=== PATIENT | male | born 1960 | race Caucasian/White ===

== ENCOUNTER → 2018-05-04 07:42 | Outpatient (CLI) | payer OTHER, SELFPAY ==
[2018-05-04 09:34] LABS: Add Manual Diff / Slide Review NO; Basophils Absolute Auto 0 /uL (0-100); Basophils Percent Auto 0.8 % (0-2); Eosinophils Absolute Auto 100 /uL (0-450); Eosinophils Percent Auto 1.6 % (2-4); Hemoglobin 16.3 g/dL (13.5-17.5); Lymphocytes Absolute Auto 1600 /uL (1100-4500); Lymphocytes Percent Auto 40.1 % (25-40); Mean Corpuscular HGB Conc 34.6 % (30-36); Mean Corpuscular Hemoglobin 32.2 PG (26-34); Monocytes Absolute Auto 300 /uL (0-900); Monocytes Percent Auto 8.5 % (3-14); Neutrophils Absolute Auto 2000 /uL (1500-7000); Platelet Count 201 X10^3/uL (150-400); Red Blood Cell Count 5.06 X10^6/uL (4.5-5.9); Red Cell Distribution Width 13.3 % (11.6-14.8)
[2018-05-04 09:45] LABS: Alanine Aminotransferase 29 IU/L (21-72); Albumin 4.6 g/dL (3.5-5.0); Albumin Globulin Ratio 1.5 (1.0-2.8); Alkaline Phosphatase 65 U/L (38-126); Aspartate Aminotransferase 31 IU/L (17-59); BUN Creatinine Ratio 22.2 (6-22); Bilirubin Total 2.2 mg/dL (0.2-1.3); Blood Urea Nitrogen 20 mg/dL (9-20); Calcium 9.4 mg/dL (8.4-10.2); Carbon Dioxide 29 mmol/L (22-32); Chloride 101 mmol/L (98-107); Cholesterol 223 mg/dL (140-199); Estimated Glomerular Filt Rate > 60.0 mL/min (>60); Glucose 98 mg/dL (70-100); HDL Cholesterol 69 mg/dL (40-60); HEMOLYSIS < 15 (0-50); LDL Cholesterol Calculated 141 mg/dL (<100); Potassium 3.8 mmol/L (3.4-5.1); Sodium 139 mmol/L (137-145); Total Protein 7.6 g/dL (6.3-8.2); Triglycerides 65 mg/dL (35-150)
[2018-05-04 09:50] LABS: Thyroid Stimulating Hormone 1.93 uIU/mL (0.47-4.68)
== END ==
PROVIDERS: PCP Family Medicine; Visit Provider Family Medicine
DX: R17 Unspecified jaundice (principal); E78.5 Hyperlipidemia, unspecified; R89.9 Unspecified abnormal finding in specimens from other organs, systems and tissues; Z12.5 Encounter for screening for malignant neoplasm of prostate; Z13.0 Encounter for screening for diseases of the blood and blood-forming organs and certain disorders involving the immune mechanism; Z13.29 Encounter for screening for other suspected endocrine disorder
CPT/HCPCS: 36415; 80053; 80061; 84153; 84443; 85025

== ENCOUNTER → 2019-11-10 14:02 | Outpatient (CLI) | payer OTHER, SELFPAY ==
--- NOTE | 2019-11-10 14:06 | DI.RAD.S_ITS ---
PROCEDURE: XR CHEST 2V INDICATIONS: Chest pain, chronic cough, swollowing problems r/o lesion TECHNIQUE: 2 views of the chest were acquired. COMPARISON: None. FINDINGS: Surgical changes and devices: None. Lungs and pleura: Lungs are clear. No pleural effusions or pneumothorax. Mediastinum: Mediastinal contours are normal. Heart size is normal. Bones and chest wall: No suspicious bony abnormalities. Soft tissues appear unremarkable. IMPRESSION: No acute cardiopulmonary process demonstrated radiographically. Dictated by: Dario Ramirez M.D. on 11/10/2019 at 14:55 Approved by: Dario Ramirez M.D. on 11/10/2019 at 14:56
== END ==
PROVIDERS: PCP Family Medicine; Referring Provider Specialist; Visit Provider Specialist
DX: R05 Cough (principal); R07.9 Chest pain, unspecified; R13.10 Dysphagia, unspecified
CPT/HCPCS: 71046

== ENCOUNTER 2019-11-18 10:46 | Day surgery (SDC) | payer OTHER, SELFPAY ==
[2019-11-18] VITALS (8 sets, daily range): BP systolic 94–136; BP diastolic 57–74; PULSE 60–84; RESP 10–18; TEMP 36.2–37; O2SAT 97–100; BMI 20.4
--- NOTE | 2019-11-18 | PATH_ITS ---
[facility] Accession Number: [id number] . 01 Material submitted: . esophagus, E-G Junction - GE JUNCTION . 02 Diagnosis: Gastroesophageal Junction, Biopsy: Squamous and columnar mucosa with no diagnostic abnormality. Negative for intestinal metaplasia by alcian blue stain. Negative for dysplasia and malignancy. [facility] 11/23/2019 1639 Local . 02 Electronically signed: . Merced Villarreal MD, Pathologist NPI- [id number] . 01 Gross description: . GE JUNCTION: Received in formalin are 5 fragment(s) of westfall, soft tissue measuring 0.5 x 0.4 x 0.1 cm to 0.2 x 0.1 x 0.1 cm submitted entirely in 1 cassette(s) /QBJ 11/19/2019 0331 Local . 02 Microscopic: . An Alcian blue stain was performed to evaluate for intestinal metaplasia and is negative. The control stain showed appropriate reactivity. . 02 Pathologist provided ICD-10: R10.13 . 02 CPT . 379639, [id number] Performed at: 01 [facility] [address], [place], [place] [id number] MD Neo Carr MD Phone: [phone] Performed at: 02 [facility] [address] [place], [place] [id number] MD Merced Villarreal MD Phone: [phone]
[2019-11-18] MEDS: LACTATED RINGERS 1,000 ML 200 ML IV ×2 (11:30→12:12)
--- NOTE | 2019-11-18 11:30 | PM.PREOP ---
Pre-operative Note COVID-19 COVID-19 status: Negative Result date/Date tested (Pos, Neg/Pending): 11/15/19 Interval Note History & Physical reviewed/Exam performed by Physician: Yes Changes to H&P: No ASA Class (for procedural sedation): I
--- NOTE | 2019-11-18 11:40 | SUR.OPER ---
Pt with HR 44-54. BP 74/46. Pt dizzy and diaphoretic. 100% on 2LNC. Given 0.4mg IV Atropine at 11:41 by ADALID Anthony. IVF Infusing. Post admin BP 80/51.
[2019-11-18] MEDS: ATROPINE 1 MG/10 ML SYRINGE IV (11:56)
--- NOTE | 2019-11-18 11:56 | P.OP.ENDO_ITS ---
Operative Date/Time/Diagnoses Date of procedure: 11/18/19 Time of procedure: 11:56 Pre-op diagnosis: Dysphagia Post-op diagnosis: same (Cause unclear. Possible Bai's esophagus.) Procedure & Clinicians Study performed: EGD with cold biopsy Same procedure as scheduled: Yes Indications: Dysphagia Surgeon: Eduardo Pinzon Procedure Notes SCOAP/Timeout: Performed Procedure in detail: The patient had topical anesthetic applied to oropharynx. He was noted to have a slow heart rate and his blood pressure was markedly reduced prior to any sedation. He was given a dose of atropine. That brought his pulse up from the 40s and low 50s into the 60-70 range. His blood pressure improved from 70s systolic to 90 systolic. He was alert throughout this. But did feel a little dizzy initially. He states that this happens to him periodically at home. After giving him a bolus of LR and the atropine, He was placed in left lateral decubitus position and underwent cautious IV sedation directed by the surgeon consisting of fentanyl and Versed. Frequent vitals were taken and they pretty much were unchanged throughout the procedure. A bite block was inserted and the scope was advanced through it into the esophagus. Th e esophagus was unremarkable. GE junction was noted at 45 cm from the incisors. The stomach insufflated well. There were no lesions seen in the body, antrum or at the incisura. The pyloric channel was widely patent. The duodenum was unremarkable to the 4th part. The scope was brought back into the stomach and retroflexed. The proximal stomach normal in appearance. There was no evidence of a hiatal hernia.. The scope was straightened and brought out through the esophagus again. The possibility of Bai's esophagus was entertained due to the appearance of the GE junction. I did some random biopsies in this region. No other lesions were seen. There was no evidence of any narrowing in the pharynx is or esophagus. The scope was removed and the patient tolerated the procedure well. Scope withdrawal time: Not applicable Sedation minutes: 10 Findings: Bai's esophagus (Possible) Specimen(s): other (GE junction) Complications: none Post-procedure Follow up: as needed Disposition: PACU
[2019-11-18] MEDS: MIDAZOLAM 5 MG/5 ML VIAL IV (11:57)
[2019-11-18] MEDS: fentaNYL 250 MCG/5 ML INJ IV (11:58)
== END 2019-11-18 12:52 | disposition home or self-care (01) ==
PROVIDERS: PCP Family Medicine; Referring Provider Family Medicine; Visit Provider Specialist
PROC: 0DJ08ZZ Inspection of Upper Intestinal Tract, Via Natural or Artificial Opening Endoscopic (ICD-10-PCS; CPT 43235; principal; 2019-11-18 11:45)
DX: R13.10 Dysphagia, unspecified (principal)
CPT/HCPCS: 43239; 99152; J0461; J2250; J3010

== ENCOUNTER → 2019-12-02 08:20 | Outpatient (CLI) | payer OTHER, SELFPAY ==
[2019-12-02 08:38] LABS: Add Manual Diff / Slide Review NO; Basophils Absolute Auto 0 /uL (0-100); Basophils Percent Auto 0.2 % (0-2); Eosinophils Absolute Auto 100 /uL (0-450); Eosinophils Percent Auto 2.9 % (2-4); Hematocrit 44.7 % (41-53); Hemoglobin 15.6 g/dL (13.5-17.5); Lymphocytes Absolute Auto 1900 /uL (1100-4500); Lymphocytes Percent Auto 47.7 % (25-40); Mean Corpuscular Hemoglobin 32.2 PG (26-34); Mean Corpuscular Volume 92.1 fL (80-100); Monocytes Absolute Auto 300 /uL (0-900); Neutrophils Absolute Auto 1700 /uL (1500-7000); Neutrophils Percent Auto 42.2 % (50-75); Platelet Count 168 X10^3/uL (150-400); Red Blood Cell Count 4.85 X10^6/uL (4.5-5.9); Red Cell Distribution Width 13.4 % (11.6-14.8); White Blood Cell Count 4.1 X10^3/uL (4.5-11.0)
[2019-12-02 08:47] LABS: HEMOLYSIS < 15 (0-50)
[2019-12-02 08:54] LABS: Alanine Aminotransferase 20 IU/L (<50); Albumin 4.5 g/dL (3.5-5.0); Albumin Globulin Ratio 1.7 (1.0-2.8); Alkaline Phosphatase 80 U/L (38-126); Aspartate Aminotransferase 28 IU/L (17-59); BUN Creatinine Ratio 19.8 (6-22); Bilirubin Total 2.9 mg/dL (0.2-1.3); Blood Urea Nitrogen 19 mg/dL (9-20); Calcium 9.4 mg/dL (8.4-10.2); Carbon Dioxide 29 mmol/L (22-32); Chloride 105 mmol/L (98-107); Cholesterol 183 mg/dL (140-199); Estimated Glomerular Filt Rate > 60.0 mL/min (>60); Globulin 2.7 g/dL (1.7-4.1); Glucose 99 mg/dL (70-100); HDL Cholesterol 73 mg/dL (40-60); LDL Cholesterol Calculated 100 mg/dL (<100); Potassium 4.2 mmol/L (3.4-5.1); Sodium 139 mmol/L (137-145); Total Protein 7.2 g/dL (6.3-8.2); Triglycerides 52 mg/dL (35-150)
[2019-12-02 09:21] LABS: Prostate Specific Antigen Scrn 0.942 ng/mL (0.1-4.0)
== END ==
PROVIDERS: PCP Family Medicine; Referring Provider Family Medicine; Visit Provider Family Medicine
DX: R07.9 Chest pain, unspecified (principal)
CPT/HCPCS: 36415; 80053; 80061; 85025; G0103

== ENCOUNTER → 2020-01-10 12:42 | Outpatient (CLI) | payer OTHER, SELFPAY ==
[2020-01-10 13:26] LABS: Erythrocyte Sedimentation Rate 1 MM/HR (0-15)
[2020-01-10 13:27] LABS: Bilirubin Direct 0.2 mg/dL (0.0-0.4); Bilirubin Total 2.8 mg/dL (0.2-1.3)
[2020-01-10 13:56] LABS: Thyroid Stimulating Hormone 1.26 uIU/mL (0.47-4.68)
== END ==
PROVIDERS: PCP Family Medicine; Referring Provider Family Medicine; Visit Provider Family Medicine
DX: R17 Unspecified jaundice (principal)
CPT/HCPCS: 36415; 82247; 82248; 84443; 85651

== ENCOUNTER → 2020-01-17 12:36 | Outpatient (CLI) | payer OTHER, SELFPAY ==
--- NOTE | 2020-01-17 12:36 | DI.US.S_ITS ---
PROCEDURE: US ABDOMEN COMPLETE INDICATIONS: INCREASED BILIRUBIN. JAUNDICE TECHNIQUE: Real-time scanning was performed of the abdominal and retroperitoneal organs, with image documentation. COMPARISON: None. FINDINGS: Liver: Liver is normal in size and demonstrates mildly increased echotexture. Gallbladder: No gallstones. No gallbladder wall thickening, pericholecystic fluid or sonographic Mcgraw's sign. Biliary ducts: Intrahepatic bile ducts are non-dilated. Extrahepatic bile duct caliber measures 4.3 mm. Normal is 6-7 mm or less in diameter, or 10 mm or less post-cholecystectomy. Pancreas: Visualized portions of the pancreas are sonographically normal. Spleen: Spleen is normal in size and homogeneous in echotexture. Kidneys: Kidneys are normal in size and echotexture. Right kidney measures 10.3 cm long; left kidney measures 9.8 cm long. No hydronephrosis or nephrolithiasis. No solid masses. Aorta: Visualized aorta is normal in caliber at less than 3 cm. Iliacs: Proximal common iliac arteries are normal in caliber at less than 2.5 cm. IVC: Intrahepatic inferior vena cava is patent. Miscellaneous: No free abdominal fluid. Hypoechoic tubular structure seen in the left lower quadrant, presumably bowel loops although no peristalsis was visualized at the time of scanning. IMPRESSION: 1. Mildly increased hepatic echotexture, which is nonspecific. This finding is most likely secondary to hepatic fatty infiltration although other hepatocellular disease may have a similar appearance. Recommend clinical correlation. 2. Hypoechoic tubular structure seen in the left lower quadrant, presumably bowel loops although no peristalsis was visualized at the time of scanning. If clinically indicated, CT may be obtained for further evaluation. Dictated by: Katie Wiseman M.D. on 01/17/2020 at 15:21 Approved by: Katie Wiseman M.D. on 01/17/2020 at 15:25
== END ==
PROVIDERS: PCP Family Medicine; Referring Provider Family Medicine; Visit Provider Family Medicine
DX: R17 Unspecified jaundice (principal)
CPT/HCPCS: 76700

== ENCOUNTER → 2020-09-27 09:35 | Outpatient (CLI) | payer OTHER, SELFPAY ==
[2020-09-27 10:36] LABS: Add Manual Diff / Slide Review NO; Basophils Absolute Auto 0 /uL (0-100); Basophils Percent Auto 0.1 % (0-2); Eosinophils Absolute Auto 100 /uL (0-450); Eosinophils Percent Auto 1.9 % (2-4); Hematocrit 44.2 % (41-53); Hemoglobin 15.2 g/dL (13.5-17.5); Lymphocytes Absolute Auto 1500 /uL (1100-4500); Lymphocytes Percent Auto 36.2 % (25-40); Mean Corpuscular HGB Conc 34.4 % (30-36); Mean Corpuscular Hemoglobin 32.2 PG (26-34); Mean Corpuscular Volume 93.7 fL (80-100); Monocytes Absolute Auto 300 /uL (0-900); Monocytes Percent Auto 7.5 % (3-14); Neutrophils Absolute Auto 2200 /uL (1500-7000); Neutrophils Percent Auto 54.3 % (50-75); Platelet Count 186 X10^3/uL (150-400); Red Blood Cell Count 4.72 X10^6/uL (4.5-5.9); White Blood Cell Count 4.1 X10^3/uL (4.5-11.0)
[2020-09-27 10:47] LABS: Alanine Aminotransferase 21 IU/L (<50); Albumin 4.3 g/dL (3.5-5.0); Albumin Globulin Ratio 1.5 (1.0-2.8); Alkaline Phosphatase 71 U/L (38-126); Aspartate Aminotransferase 32 IU/L (17-59); BUN Creatinine Ratio 25.6 (6-22); Bilirubin Total 3.1 mg/dL (0.2-1.3); Blood Urea Nitrogen 23 mg/dL (9-20); Calcium 9.2 mg/dL (8.4-10.2); Carbon Dioxide 29 mmol/L (22-32); Chloride 104 mmol/L (98-107); Cholesterol 197 mg/dL (140-199); Estimated Glomerular Filt Rate > 60.0 mL/min (>60); Globulin 2.8 g/dL (1.7-4.1); Glucose 94 mg/dL (70-100); HDL Cholesterol 65 mg/dL (40-60); HEMOLYSIS < 15 (0-50); LDL Cholesterol Calculated 117 mg/dL (<100); Potassium 4.1 mmol/L (3.4-5.1); Sodium 138 mmol/L (137-145); Total Protein 7.1 g/dL (6.3-8.2); Triglycerides 77 mg/dL (35-150)
[2020-09-27 11:16] LABS: Prostate Specific Antigen Scrn 2.15 ng/mL (0.1-4.0)
[2020-09-27 11:35] LABS: Creatinine Urine Random 195.3 mg/dL
[2020-09-27 11:40] LABS: Microalbumin Urine Random < 0.6 mg/dL (0-1.6)
[2020-09-27 11:45] LABS: TSH w/ Reflex to FT4 1.56 uIU/mL (0.47-4.68)
== END ==
PROVIDERS: PCP Family Medicine; Referring Provider Family Medicine; Visit Provider Family Medicine
DX: R17 Unspecified jaundice (principal); Z13.220 Encounter for screening for lipoid disorders; Z13.228 Encounter for screening for other metabolic disorders; Z13.29 Encounter for screening for other suspected endocrine disorder; Z76.89 Persons encountering health services in other specified circumstances; Z12.5 Encounter for screening for malignant neoplasm of prostate
CPT/HCPCS: 36415; 80053; 80061; 80076; 82043; 82570; 84443; 85025; G0103

== ENCOUNTER → 2021-07-26 14:46 | Outpatient (CLI) | payer OTHER, SELFPAY ==
[2021-07-26 17:12] LABS: Add Manual Diff / Slide Review NO; Basophils Absolute Auto 0 /uL (0-100); Basophils Percent Auto 0.1 % (0-2); Eosinophils Absolute Auto 100 /uL (0-450); Eosinophils Percent Auto 1.4 % (2-4); Hematocrit 42.8 % (41-53); Hemoglobin 14.7 g/dL (13.5-17.5); Lymphocytes Absolute Auto 1200 /uL (1100-4500); Lymphocytes Percent Auto 31.6 % (25-40); Mean Corpuscular HGB Conc 34.4 % (30-36); Mean Corpuscular Hemoglobin 32.1 PG (26-34); Mean Corpuscular Volume 93.2 fL (80-100); Monocytes Absolute Auto 300 /uL (0-900); Neutrophils Absolute Auto 2300 /uL (1500-7000); Neutrophils Percent Auto 57.9 % (50-75); Platelet Count 185 X10^3/uL (150-400); Red Blood Cell Count 4.59 X10^6/uL (4.5-5.9); Red Cell Distribution Width 13.2 % (11.6-14.8); White Blood Cell Count 3.9 X10^3/uL (4.5-11.0)
[2021-07-26 17:21] LABS: Alanine Aminotransferase 17 IU/L (<50); Albumin 4.5 g/dL (3.5-5.0); Albumin Globulin Ratio 1.7 (1.0-2.8); Alkaline Phosphatase 61 U/L (38-126); Aspartate Aminotransferase 28 IU/L (17-59); BUN Creatinine Ratio 25.3 (6-22); Bilirubin Total 2.2 mg/dL (0.2-1.3); Blood Urea Nitrogen 24 mg/dL (9-20); Calcium 8.7 mg/dL (8.4-10.2); Carbon Dioxide 29 mmol/L (22-32); Chloride 105 mmol/L (98-107); Estimated Glomerular Filt Rate > 60 mL/min (>60); Globulin 2.6 g/dL (1.7-4.1); Glucose 72 mg/dL (80-110); HEMOLYSIS < 15 (0-50); Sodium 141 mmol/L (137-145); Total Protein 7.1 g/dL (6.3-8.2)
[2021-07-26 17:51] LABS: Prostate Specific Antigen 0.986 ng/mL (0.10-4.00)
== END ==
PROVIDERS: PCP Family Medicine; Referring Provider Family Medicine; Visit Provider Family Medicine
DX: Z00.00 Encounter for general adult medical examination without abnormal findings (principal); E80.4 Gilbert syndrome
CPT/HCPCS: 36415; 80053; 84153; 85025

== ENCOUNTER → 2021-08-21 10:09 | Outpatient (CLI) | payer OTHER, SELFPAY ==
--- NOTE | 2021-08-21 10:10 | DI.US.S_ITS ---
PROCEDURE: US SOFT TISSUE HEAD AND NECK INDICATIONS: LEFT NECK LUMP TECHNIQUE: Real-time scanning was performed of the neck region of interest, with image documentation. COMPARISON: None. FINDINGS: No abnormal mass or lymph nodes identified in the area of clinical interest. No soft tissue edema or fluid collections identified in the area of clinical interest. IMPRESSION: No sonographic abnormality identified in the area of clinical interest. Dictated by: Camila Lopez MD, PhD on 08/21/2021 at 13:22 Approved by: Camila Lopez MD, PhD on 08/21/2021 at 13:26
== END ==
PROVIDERS: PCP Family Medicine; Referring Provider Family Medicine; Visit Provider Family Medicine
DX: R59.0 Localized enlarged lymph nodes (principal)
CPT/HCPCS: 76536

== ENCOUNTER → 2022-04-16 14:21 | Outpatient (CLI) | payer OTHER, SELFPAY ==
[2022-04-16 15:34] LABS: Add Manual Diff / Slide Review NO; Basophils Absolute Auto 0 /uL (0-100); Basophils Percent Auto 0.1 % (0-2); Eosinophils Absolute Auto 0 /uL (0-450); Eosinophils Percent Auto 0.5 % (2-4); Hematocrit 43.2 % (41-53); Hemoglobin 14.8 g/dL (13.5-17.5); Lymphocytes Absolute Auto 1100 /uL (1100-4500); Lymphocytes Percent Auto 21.8 % (25-40); Mean Corpuscular HGB Conc 34.3 % (30-36); Mean Corpuscular Hemoglobin 31.8 PG (26-34); Mean Corpuscular Volume 92.6 fL (80-100); Monocytes Absolute Auto 300 /uL (0-900); Monocytes Percent Auto 6.3 % (3-14); Neutrophils Absolute Auto 3600 /uL (1500-7000); Neutrophils Percent Auto 71.3 % (50-75); Platelet Count 190 X10^3/uL (150-400); Red Blood Cell Count 4.67 X10^6/uL (4.5-5.9); Red Cell Distribution Width 13.4 % (11.6-14.8)
== END ==
PROVIDERS: PCP Family Medicine; Referring Provider Nurse Practitioner Family; Visit Provider Nurse Practitioner Family
DX: R59.1 Generalized enlarged lymph nodes (principal)
CPT/HCPCS: 36415; 85025

== ENCOUNTER → 2022-05-02 | Outpatient (CLI) | payer OTHER, SELFPAY ==
--- NOTE | 2022-05-02 08:11 | DI.US.S_ITS ---
PROCEDURE: US SOFT TISSUE HEAD AND NECK INDICATIONS: enlarged lymph node right submandibular TECHNIQUE: Real-time scanning was performed of the neck region of interest, with image documentation. COMPARISON: None. FINDINGS: Two normal appearing lymph nodes with preserved fatty nvoa and no cortical thickening at the area palpable concern in the right submandibular space. IMPRESSION: Two normal appearing lymph nodes in the right submandibular space, neither enlarged or demonstrating suspicious features. Dictated by: Dario Ramirez M.D. on 05/02/2022 at 18:36 Approved by: Dario Ramirez M.D. on 05/02/2022 at 18:39
--- NOTE | 2022-06-02 08:24 | DI.ECHO.S_ITS ---
Echocardiogram Report + + :Name: ИРИНА LOYA Study Date: 05/02/2022 Height: 73 in : :Reason For Study: murmur : :Ordering Physician: GRACE, : :DAWOOD Performed By: Diana Covarrubias : :Referring: DAWOOD EDWARDS : + + Interpretation Summary Normal sinus rhythm. Normal LV size and wall thickness; normal wall motion and LV systolic function. EF is 60-65% There is mild LA enlargement; otherwise normal chamber sizes. Mitral valve leaflets demonstrate prolapse of the posterior leaflet worse than the anterior leaflet. There is mild-moderate associated central mitral regurgitation. Mild tricuspid regurgitation with estimated PA systolic pressure of 28 mm Hg assuming RA pressure of 8 mm Hg. No prior study available for comparison. Procedure: A two-dimensional transthoracic echocardiogram with color flow and Doppler was performed. The patient was in sinus rhythm with heart rates between 68-71 bpm during the exam. Left Ventricle: The left ventricle is normal in size and wall thickness. Right Ventricle: The right ventricle is normal in size and function. Atria: The left atrium is mildly dilated. Right atrial size is normal. There is no Doppler evidence for an interatrial shunt. Mitral Valve: Mild MVP. The mitral valve leaflets appear moderately thickened, but open well. There is mild to moderate mitral regurgitation. There are multiple regurgitant jets present. Aortic Valve: The aortic valve is normal in structure and function. No aortic regurgitation is present. Tricuspid Valve: The tricuspid valve is normal in structure and function. There is a trace or physiologic amount of tricuspid regurgitation. Pulmonic Valve: The pulmonic valve leaflets are thin and pliable; valve motion is normal. There is mild pulmonic regurgitation. Great Vessels: The ascending aorta is at the upper limits of normal in size. The IVC is dilated (diameter is greater than 2.1 cm) yet it collapses greater than 50% with a sniff. This suggests a right atrial pressure of 8 mm Hg. Pericardium/ Pleura There is no pericardial effusion. There is no pleural effusion. MMode/2D Measurements & Calculations LVIDd: 5.0 cm LVOT diam: 2.3 cm LVIDs: 2.8 cm Ao root diam: 3.8 cm FS: 44.6 % asc Aorta Diam: 3.6 cm EPSS: 0.26 cm IVSd: 0.84 cm LVPWd: 0.82 cm LV eduardo. diameter/BSA (cm/m^2): 2.6 LV sys. diameter/BSA (cm/m^2): 1.4 LA A2 area: 22.5 cm2 RA long axis: 5.1 cm LA A4 area: 21.1 cm2 RA area: 21.9 cm2 LA length (vol): 5.1 cm RA vol: 79.5 ml LA vol: 78.5 ml RA : 41.1 ml/m2 LA vol index: 40.5 ml/m2 TAPSE: 2.9 cm Doppler Measurements & Calculations Ao V2 max: 112.7 cm/sec LVOT Max Balta: 99.5 cm/sec Ao V2 mean: 78.3 cm/sec LV V1 max P.0 mmHg Ao max P.1 mmHg LV V1 VTI: 18.7 cm Ao mean P.8 mmHg BRAULIO(I,D): 3.4 cm2 Ao V2 VTI: 22.0 cm BRAULIO(V,D): 3.5 cm2 sev ratio: 0.85 BRAULIO indexed to BSA (cm^2/m^2): 1.8 MV E max balta: 62.9 cm/sec TR max balta: 202.8 cm/sec MV A max balta: 77.0 cm/sec TR max P.6 mmHg MV E/A: 0.82 PA V2 max: 95.5 cm/sec Med Peak E' Balta: 10.8 cm/sec PA V2 mean: 68.0 cm/sec E/E' med: 5.8 PA mean P.0 mmHg Lat Peak E' Balta: 11.7 cm/sec E/E' lat: 5.4 E/e' average: 5.6 MV dec time: 0.28 sec MVA(VTI): 2.8 cm2 MV V2 mean: 47.8 cm/sec SV(LVOT): 74.9 ml MV mean P.0 mmHg MV V2 VTI: 26.4 cm Electronically signed by: Ronda Shell M.D. on Reading Physician:05/03/2022 01:21 AM
== END ==
LOC: ECHO 08:11
PROVIDERS: PCP Family Medicine; Referring Provider Nurse Practitioner Family; Visit Provider Nurse Practitioner Family
DX: I08.1 Rheumatic disorders of both mitral and tricuspid valves (principal); R01.1 Cardiac murmur, unspecified; R59.0 Localized enlarged lymph nodes
CPT/HCPCS: 76536; 93306

== ENCOUNTER → 2023-05-15 07:51 | Outpatient (CLI) | payer OTHER, SELFPAY ==
--- NOTE | 2023-05-15 07:53 | DI.ECHO.S_ITS ---
[facility]---------+ [facility] +---------+ : : [address] : : : : [id number] : : : : Phone: [phone]+ Echocardiogram Report + + :Name: ИРИНА LOYA Study Date: 05/15/2023 Height: 72 in : :[facility] ReadingLocation: Weight: 156 lb : : Gender: Male BSA: 1.9 m2 : :: 1960 Age: 63 yrs BP: 139/79 mmHg: :Reason For Study: MITRAL INSUFFICIENCY : :Ordering Physician: CHAPIS, : :BILLIE Performed By: Diana Martínez : :Referring: BILLIE NATION : + + Interpretation Summary The ejection fraction is estimated to be 55-60%. Diastolic function could not be accurately assessed due to contradictory data. The left atrium is mildly dilated. The right ventricle is normal in size and function. The right atrium is mildly dilated. There is prolapse of the posterior mitral valve leaflet(s). There is at least moderate mitral regurgitation. There is mild tricuspid regurgitation. Pulmonary artery pressures cannot be estimated because of the lack of a measurable TR jet velocity but the IVC suggests a CVP of around 8 mmHg. Compared to the prior study dated 05/02/2022, the LVEF has decreased and the LV end diastolic diameter has increased. The severity of MR has also increased. Recommend cardiology referral. Procedure: A two-dimensional transthoracic echocardiogram with color flow and Doppler was performed. The study quality was technically good. Comparison is made with the echocardiogram of 05/02/2022. The patient was in sinus bradycardia with heart rates between 45-65 bpm during the exam. Left Ventricle: The left ventricle is normal in size and wall thickness. The ejection fraction is estimated to be 55-60%. Diastolic function could not be accurately assessed due to contradictory data. Right Ventricle: The right ventricle is normal in size and function. Atria: The left atrium is mildly dilated. The right atrium is mildly dilated. There is no Doppler evidence for an interatrial shunt. Mitral Valve: There is prolapse of the posterior mitral valve leaflet(s). There is mild mitral valve prolapse. There is moderate mitral regurgitation. There are multiple regurgitant jets present. Aortic Valve: The aortic valve is trileaflet. The aortic valve opens well. There is no aortic valve stenosis. No aortic regurgitation is present. Tricuspid Valve: The tricuspid valve leaflets are thin and pliable. There is mild tricuspid regurgitation. Pulmonary artery pressures cannot be estimated because of the lack of a measurable TR jet velocity but the IVC suggests a CVP of around 8 mmHg. Pulmonic Valve: The pulmonic valve leaflets are thin and pliable; valve motion is normal. There is mild pulmonic regurgitation. Great Vessels: The aortic root is borderline dilated. The ascending aorta could not be visualized. The IVC is dilated (diameter is greater than 2.1 cm) yet it collapses greater than 50% with a sniff. This suggests a right atrial pressure of 8 mm Hg. Pericardium/ Pleura There is no pericardial effusion. There is no pleural effusion. MMode/2D Measurements & Calculations LVIDd: 5.6 cm LVOT diam: 2.2 cm LVIDs: 3.7 cm Ao root diam: 3.7 cm FS: 34.5 % EPSS: 0.45 cm IVSd: 0.69 cm LVPWd: 0.62 cm LV eduardo. diameter/BSA (cm/m^2): 2.9 LV sys. diameter/BSA (cm/m^2): 1.9 LA A2 area: 22.7 cm2 RA long axis: 5.6 cm LA A4 area: 17.4 cm2 RA area: 22.6 cm2 LA length (vol): 4.7 cm RA vol: 77.1 ml LA vol: 71.3 ml RA : 40.2 ml/m2 LA vol index: 37.2 ml/m2 IVC diam: 2.1 cm RVD1 (basal): 3.9 cm TAPSE: 2.7 cm Doppler Measurements & Calculations Ao V2 max: 99.3 cm/sec LVOT Max Balta: 81.9 cm/sec Ao V2 mean: 76.2 cm/sec LV V1 max P.7 mmHg Ao max P.9 mmHg LV V1 VTI: 17.0 cm Ao mean P.5 mmHg BRAULIO(I,D): 3.3 cm2 Ao V2 VTI: 20.0 cm BRAULIO(V,D): 3.2 cm2 sev ratio: 0.85 BRAULIO indexed to BSA (cm^2/m^2): 1.7 MV E max balta: 76.8 cm/sec PA V2 max: 74.0 cm/sec MV A max balta: 41.8 cm/sec PA V2 mean: 50.2 cm/sec MV E/A: 1.8 PA mean P.1 mmHg Med Peak E' Balta: 9.0 cm/sec PA pr(Accel): 20.8 mmHg E/E' med: 8.5 Lat Peak E' Balta: 9.4 cm/sec E/E' lat: 8.2 E/e' average: 8.3 MV dec time: 0.17 sec SV(LVOT): 66.5 ml Reading Physician:07:54 PM
[2023-05-15 10:25] LABS: Alanine Aminotransferase 21 IU/L (<50); Albumin 4.6 g/dL (3.5-5.0); Albumin Globulin Ratio 1.6 (1.0-2.8); Alkaline Phosphatase 65 U/L (38-126); Aspartate Aminotransferase 29 IU/L (17-59); BUN Creatinine Ratio 21.4 (6-22); Bilirubin Total 3.1 mg/dL (0.2-1.3); Blood Urea Nitrogen 21 mg/dL (9-20); Calcium 9.4 mg/dL (8.4-10.2); Carbon Dioxide 28 mmol/L (22-32); Chloride 102 mmol/L (98-107); Cholesterol 223 mg/dL (140-199); Estimated Glomerular Filt Rate > 60 mL/min (>60); Globulin 2.9 g/dL (1.7-4.1); Glucose 90 mg/dL (80-110); HDL Cholesterol 78 mg/dL (40-60); HEMOLYSIS < 15 (0-50); LDL Cholesterol Calculated 135 mg/dL (<100); Sodium 140 mmol/L (137-145); Total Protein 7.5 g/dL (6.3-8.2); Triglycerides 51 mg/dL (35-150)
== END ==
LOC: ECHO 07:52
PROVIDERS: PCP Family Medicine; Referring Provider Family Medicine; Visit Provider Family Medicine
DX: Z00.00 Encounter for general adult medical examination without abnormal findings (principal); I08.1 Rheumatic disorders of both mitral and tricuspid valves; R01.1 Cardiac murmur, unspecified; R17 Unspecified jaundice; J18.9 Pneumonia, unspecified organism; E01.0 Iodine-deficiency related diffuse (endemic) goiter
CPT/HCPCS: 36415; 80053; 80061; 93306

== ENCOUNTER → 2023-09-30 12:31 | Outpatient (CLI) | payer OTHER, SELFPAY ==
--- NOTE | 2023-09-30 12:33 | DI.RAD.S_ITS ---
PROCEDURE: XR HIP W PEL IF DONE LT 2V INDICATIONS: Chronic left hip pain TECHNIQUE: AP pelvis with lateral view of the left hip. COMPARISON: None. FINDINGS: Bones: No acute fractures or dislocations. Pelvic ring appears intact. No suspicious bony lesions. Moderate to severe joint space narrowing is seen at the superior aspect of the hips bilaterally with subchondral sclerosis, subchondral cystic changes, and marginal osteophytes. Osseous prominence is seen at the femoral head/neck junctions bilaterally that could contribute to cam-type femoroacetabular impingement in the appropriate clinical setting. Mild chronic osseous irregularity at the anterior inferior left iliac spine may be related to a remote prior injury. Degenerative changes are seen in the included lumbar spine. Soft tissues: The visualized bowel gas pattern is normal. No suspicious soft tissue calcifications. IMPRESSION: Moderate to severe bilateral hip osteoarthrosis. Approved by: Jean-Claude Jones M.D. on 09/30/2023 at 14:00
--- NOTE | 2023-09-30 12:33 | DI.RAD.S_ITS ---
PROCEDURE: XR KNEE RT 3V INDICATIONS: Worsening right knee pain TECHNIQUE: 3 views of the knee were acquired. COMPARISON: None. FINDINGS: Bones: No acute fractures or dislocations. No suspicious bony lesions. Small suprapatellar enthesophyte. Mild joint space narrowing at the medial and anterior compartments with tiny marginal osteophytes. Soft tissues: Small knee effusion. No suspicious soft tissue calcifications. IMPRESSION: Mild osteoarthrosis. Small joint effusion. No acute osseous abnormality. Approved by: Jean-Claude Jones M.D. on 09/30/2023 at 14:01
--- NOTE | 2023-09-30 12:33 | DI.RAD.S_ITS ---
PROCEDURE: XR SHOULDER RT MIN 2V INDICATIONS: Progressive atraumatic right shoulder pain. Past RCT inj TECHNIQUE: 3 views of the shoulder were acquired. COMPARISON: None. FINDINGS: Bones: No acute fractures or dislocations. No suspicious bony lesions. Visualized ribs appear intact. Moderate acromioclavicular joint osteoarthrosis. Possible mild degenerative spurring in the glenoid rim. Soft tissues: No suspicious soft tissue calcifications. IMPRESSION: Moderate acromioclavicular joint osteoarthrosis. Approved by: Jean-Claude Jones M.D. on 09/30/2023 at 14:02
== END ==
PROVIDERS: PCP Family Medicine; Referring Provider Family Medicine; Visit Provider Family Medicine
DX: M16.0 Bilateral primary osteoarthritis of hip (principal); M19.011 Primary osteoarthritis, right shoulder; M17.11 Unilateral primary osteoarthritis, right knee; M25.461 Effusion, right knee; M25.511 Pain in right shoulder; M25.552 Pain in left hip; M25.561 Pain in right knee
CPT/HCPCS: 73030; 73502; 73562

== ENCOUNTER → 2024-04-29 10:11 | Outpatient (CLI) | payer BC, SELFPAY ==
[2024-04-29 11:29] LABS: Add Manual Diff / Slide Review NO; Basophils Absolute Auto 0 /uL (0-100); Basophils Percent Auto 0.1 % (0-2); Eosinophils Absolute Auto 100 /uL (0-450); Eosinophils Percent Auto 1.7 % (2-4); Hematocrit 46.7 % (41-53); Hemoglobin 16.1 g/dL (13.5-17.5); Lymphocytes Absolute Auto 1900 /uL (1100-4500); Mean Corpuscular HGB Conc 34.4 % (30-36); Mean Corpuscular Hemoglobin 32.3 PG (26-34); Mean Corpuscular Volume 93.8 fL (80-100); Monocytes Absolute Auto 400 /uL (0-900); Neutrophils Absolute Auto 3400 /uL (1500-7000); Neutrophils Percent Auto 59.2 % (50-75); Platelet Count 204 X10^3/uL (150-400); Red Blood Cell Count 4.98 X10^6/uL (4.5-5.9); Red Cell Distribution Width 13.1 % (11.6-14.8); White Blood Cell Count 5.8 X10^3/uL (4.5-11.0)
[2024-04-29 12:00] LABS: Alanine Aminotransferase 22 IU/L (<50); Albumin 4.7 g/dL (3.5-5.0); Albumin Globulin Ratio 1.9 (1.0-2.8); Alkaline Phosphatase 65 U/L (38-126); Aspartate Aminotransferase 31 IU/L (17-59); BUN Creatinine Ratio 24.7 (6-22); Blood Urea Nitrogen 22 mg/dL (9-20); Calcium 9.3 mg/dL (8.4-10.2); Carbon Dioxide 28 mmol/L (22-32); Chloride 103 mmol/L (98-107); Cholesterol 223 mg/dL (140-199); Estimated Glomerular Filt Rate > 60 mL/min (>60); Globulin 2.5 g/dL (1.7-4.1); Glucose 93 mg/dL (80-110); HDL Cholesterol 77 mg/dL (40-60); HEMOLYSIS < 15 (0-50); LDL Cholesterol Calculated 130 mg/dL (<100); Potassium 4.2 mmol/L (3.4-5.1); Sodium 138 mmol/L (137-145); Total Protein 7.2 g/dL (6.3-8.2); Triglycerides 80 mg/dL (35-150)
[2024-04-29 12:30] LABS: Prostate Specific Antigen 1.39 ng/mL (0.10-4.00)
== END ==
PROVIDERS: PCP Family Medicine; Referring Provider Family Medicine; Visit Provider Family Medicine
DX: N40.1 Benign prostatic hyperplasia with lower urinary tract symptoms (principal); E78.5 Hyperlipidemia, unspecified
CPT/HCPCS: 36415; 80053; 80061; 84153; 85025

== ENCOUNTER → 2024-05-20 07:44 | Outpatient (CLI) | payer BC, SELFPAY ==
--- NOTE | 2024-05-20 07:44 | DI.US.S_ITS ---
PROCEDURE: US ABDOMEN LIMITED INDICATIONS: ELEVATED BILIRUBIN TECHNIQUE: Real-time scanning was performed of the abdominal and retroperitoneal organs, with image documentation. COMPARISON: [facility], US, US ABDOMEN COMPLETE, 01/17/2020, 12:50. FINDINGS: Liver: Liver is normal in size and homogeneous in echotexture. Main portal vein diameter is normal, direction of flow is normal. Gallbladder: No gallstones. No wall thickening. No pericholecystic edema. Negative sonographic Mcgraw's sign. Biliary ducts: Intrahepatic bile ducts are non-dilated. Extrahepatic bile duct caliber measures 4.8 mm. Normal is 6-7 mm or less in diameter, or 10 mm or less post-cholecystectomy. Pancreas: Visualized portions of the pancreas are sonographically normal. Miscellaneous: No free abdominal fluid. IMPRESSION: Source of elevated bilirubin is not identified. Dictated by: Juan Pepper M.D. on 05/20/2024 at 10:59 Approved by: Juan Pepper M.D. on 05/20/2024 at 11:00
== END ==
PROVIDERS: PCP Family Medicine; Referring Provider Family Medicine; Visit Provider Family Medicine
DX: R89.9 Unspecified abnormal finding in specimens from other organs, systems and tissues (principal)
CPT/HCPCS: 76705

== ENCOUNTER → 2024-08-04 07:25 | Outpatient (CLI) | payer BC, SELFPAY ==
[2024-08-04 08:49] LABS: Bilirubin Direct 0.3 mg/dL (0.0-0.4); Bilirubin Total 1.8 mg/dL (0.2-1.3)
== END ==
PROVIDERS: PCP Family Medicine; Referring Provider Family Medicine; Visit Provider Family Medicine
DX: R17 Unspecified jaundice (principal)
CPT/HCPCS: 36415; 82247; 82248

== ENCOUNTER → 2024-11-16 09:08 | Outpatient (CLI) | payer BC, SELFPAY ==
--- NOTE | 2024-11-16 09:10 | DI.MRI.S_ITS ---
PROCEDURE: MR SHOULDER RT WO CON INDICATIONS: screening TECHNIQUE: Noncontrast oblique coronal T2 fast spin echo with fat saturation, oblique sagittal T1 spin echo and T2 fast spin echo with fat saturation, axial T1 spin echo and T2 fast spin echo with fat saturation through the shoulder. COMPARISON: [facility], CR, XR SHOULDER RT MIN 2V, 09/30/2023, 12:35. FINDINGS: Image quality: Excellent. Rotator cuff: Mild T2 signal elevation diffusely throughout the supraspinatus and infraspinatus tendons at the humeral insertion sites extending to musculotendinous junctions, indicating tendinopathy. Superimposed intrasubstance and articular surface tearing of the anterior, mid, and posterior supraspinatus as well as the mid and anterior infraspinatus tendons at the humeral insertion sites extending to the musculotendinous junctions. Low-grade articular surface tearing of the mid subscapularis tendon at the humeral insertion site extending to musculotendinous junction. Teres minor is intact. No rotator cuff atrophy. Bones and bursae: No bone marrow contusions or fractures. Moderate glenohumeral and acromioclavicular joint degeneration. The acromion demonstrates conventional anatomy, without an os acromiale. No pathologic subacromial-subdeltoid or subcoracoid bursal fluid is present. Capsule and soft tissues: Diffuse degenerative fraying and undercutting of the labrum. Partial thickness biceps tendon tear. The rotator interval appears normal, without fibrosis. The coracohumeral ligament is normal in thickness. IMPRESSION: 1. Supraspinatus and infraspinatus tendinopathy. Partial-thickness tearing of the subscapularis, supraspinatus, and infraspinatus tendons. No full-thickness rotator cuff tear. 2. Acromioclavicular and glenohumeral joint osteoarthritis. 3. Glenoid labral tearing. 4. Biceps tendon tear. Dictated by: Ann Wilkerson M.D. on 11/16/2024 at 10:37 Approved by: Ann Wilkerson M.D. on 11/16/2024 at 10:40
== END ==
PROVIDERS: PCP Family Medicine; Referring Provider Family Medicine; Visit Provider Family Medicine
DX: M75.111 Incomplete rotator cuff tear or rupture of right shoulder, not specified as traumatic (principal); M19.011 Primary osteoarthritis, right shoulder; S46.211A Strain of muscle, fascia and tendon of other parts of biceps, right arm, initial encounter; M24.111 Other articular cartilage disorders, right shoulder; M25.511 Pain in right shoulder; G89.29 Other chronic pain
CPT/HCPCS: 73221

== ENCOUNTER → 2025-01-26 09:08 | Outpatient (CLI) | payer BC, SELFPAY ==
--- NOTE | 2025-01-26 09:09 | DI.ECHO.S_ITS ---
[facility] : : [id number] : : [address] [address] : : [id number] : : Phone: [phone] Echocardiogram Report + + :Name: ИРИНА LOYA Study Date: 01/26/2025 Height: 72 in : :[facility] ReadingLocation: Weight: 156 lb : : Gender: Male BSA: 1.9 m2 : :: 1960 Age: 65 yrs BP: 121/73 mmHg: :Reason For Study: CHRONIC SYSTOLIC HEART FAILURE : :Ordering Physician: DAYANARA, : :WENDY Performed By: Dario Seay : :Referring: WENDY NICHOLE : + + Interpretation Summary The left ventricle is normal in size.LVIDd: 5.1 cm LVIDs: 2.7 cm Left ventricular ejection fraction is estimated to be 60 +/- 5%. The right ventricle is normal in size and function. The left atrium is severely dilated. Previously mildly dilated. Mild prolapse of body of posterior mitral leaflet without any true prolapse with moderately thickened mitral leaflets. Pulmonary vein systolic reversal suggestive of significant MR. However considering multiple views overall moderate to severe MR. Previously mild to moderate MR. There is mild tricuspid regurgitation. The right ventricular systolic pressure is estimated to be at least 30 mmHg based on an estimated right atrial pressure of 8 mm Hg. The aortic root is mildly dilated. 4.2 cm in diameter. Previously 3.8 cm. Procedure: A two-dimensional transthoracic echocardiogram with color flow and Doppler was performed in limited views only to assess Wall motion and EF. The study quality was technically good. Comparison is made with the echocardiogram of 05/15/2023. The patient was in normal sinus rhythm during the exam. Left Ventricle: The left ventricle is normal in size. There is normal left ventricular wall thickness. There is no thrombus. Left ventricular ejection fraction is estimated to be 60 +/- 5%. There are no focal wall motion abnormalities. Right Ventricle: The right ventricle is normal in size and function. Atria: The left atrium is severely dilated. The right atrium is mildly dilated. A prominent eustachian valve is noted. Mitral Valve: Mild prolapse of body of posterior mitral leaflet without any true prolapse with moderately thickened mitral leaflets. Overall moderate mitral regurgitation. There is moderate mitral regurgitation. Aortic Valve: The aortic valve is trileaflet. There is no aortic valve stenosis. No aortic regurgitation is present. Tricuspid Valve: The tricuspid valve leaflets are thin and pliable. There is mild tricuspid regurgitation. The right ventricular systolic pressure is estimated to be at least 30 mmHg based on an estimated right atrial pressure of 8 mm Hg. Pulmonic Valve: The pulmonic valve is not well visualized. There is trace pulmonic regurgitation. Great Vessels: The aortic root is mildly dilated. The ascending aorta could not be visualized. The pulmonary is not well visualized. The IVC is dilated (diameter is greater than 2.1 cm) yet it collapses greater than 50% with a sniff. This suggests a right atrial pressure of 8 mm Hg. Pericardium/ Pleura There is no pericardial effusion. There is no pleural effusion. MMode/2D Measurements & Calculations LVIDd: 5.1 cm Ao root diam: 4.2 cm LVIDs: 2.7 cm FS: 47.7 % IVSd: 0.97 cm LVPWd: 0.72 cm LV eduardo. diameter/BSA (cm/m^2): 2.7 LV sys. diameter/BSA (cm/m^2): 1.4 LA A2 area: 34.2 cm2 RA long axis: 5.5 cm LA A4 area: 23.6 cm2 RA area: 21.7 cm2 LA length (vol): 5.7 cm RA vol: 72.5 ml LA vol: 120.6 ml RA : 37.8 ml/m2 LA vol index: 62.9 ml/m2 IVC diam: 2.4 cm Doppler Measurements & Calculations TR max rubén: 232.9 cm/sec TR max P.7 mmHg Reading Physician:04:23 PM
== END ==
LOC: ECHO 09:09
PROVIDERS: PCP Family Medicine; Referring Provider Internal Medicine Cardiovascular Disease; Visit Provider Internal Medicine Cardiovascular Disease
DX: I77.810 Thoracic aortic ectasia (principal); I08.1 Rheumatic disorders of both mitral and tricuspid valves; I50.22 Chronic systolic (congestive) heart failure
CPT/HCPCS: 93307